=== PATIENT | male | born 2000 | race Caucasian/White ===

== ENCOUNTER 2020-04-03 20:45 | Inpatient (IN) | payer OTHER ==
[2020-04-03 21:15] LABS: Appearance,Urine Clear (Clear); Bilirubin,Urine Negative (Negative); Blood,Urine Negative (Negative); Color,Urine Yellow; Glucose,Urine (UA) Negative (Negative); Ketones,Urine Negative (Negative); Leukocyte Esterase,Urine Negative (Negative); Nitrite,Urine Negative (Negative); PH, Urine 6.5 (5.0-8.0); Protein,Urine Negative (Negative); Specific Gravity,Urine 1.027 (1.001-1.035); Urobilinogen,Urine <2.0 mg/dL (<2.0)
[2020-04-03 21:28] LABS: Amphetamine Screen,Urine Not Detected (NotDetected); Barbiturate Screen,Urine Not Detected (NotDetected); Benzodiazepines Screen,Urine Not Detected (NotDetected); Cocaine Screen,Urine Not Detected (NotDetected); Methadone Screen, Urine Not Detected (NotDetected); Opiate Screen,Urine Not Detected (NotDetected); Oxycodone Screen, Urine Not Detected (NotDetected); Phencyclidine Screen,Urine Not Detected (NotDetected); Tricyclic Antidepressant,Urine Not Detected (NotDetected); Urn Cannabinoid Scrn Not Detected (NotDetected)
--- NOTE | 2020-04-03 22:38 | ED ---
Psych HPI <LyndonHarpal ballesteros - Last Filed: 04/04/20 02:28> - General Source: patient Mode of arrival: ambulatory <Michelle Sanabria - Last Filed: 04/08/20 02:58> - General Chief Complaint: Psychiatric Symptoms Stated Complaint: Mental health Time Seen by Provider: 04/03/20 20:56 - History of Present Illness Initial Comments: 19-year-old male patient passed medical history significant for bipolar disorder presents to the emergency department today for evaluation of suicidal ideation. Patient states he was recently in trouble with the law and has been very stressed out regarding this. States he was recently incarcerated and started on Prozac, he does not feel it is helping. States he is currently staying at the [facility]. States he has a plan to hang himself because he is overwhelmed and sad from dealing with all of the legal proceedings. He denies any current physical symptoms or concerns. Denies any alcohol or drug use. Patient denies any recent rash, fever, chills, cough, shortness of breath, chest pain, ab dominal pain, nausea, vomiting, diarrhea, constipation, back pain, numbness, tingling, dizziness, weakness, hematuria, dysuria, urinary urgency, urinary frequency, headache, visual changes, or any other complaints. (Michelle Sanabria) - Related Data Home Medications Medication Instructions Recorded Confirmed No Known Home Medications 04/04/20 04/04/20 Allergies Allergy/AdvReac Type Severity Reaction Status Date / Time No Known Allergies Allergy Verified 04/04/20 08:07 Review of Systems ROS Other: All systems not noted in ROS Statement are negative. <Harpal Infante - Last Filed: 04/04/20 02:28> ROS Other: All systems not noted in ROS Statement are negative. <Michelle Sanabria - Last Filed: 04/08/20 02:58> ROS Statement: Those systems with pertinent positive or pertinent negative responses have been documented in the HPI. Past Medical History Past Medical History: No Reported History Additional Past Medical History / Comment(s): ODD, OCD History of Any Multi-Drug Resistant Organisms: None Reported Past Surgical History: No Surgical Hx Reported Past Psychological History: ADD/ADHD, Bipolar Smoking Status: Current every day smoker Past Alcohol Use History: None Reported Past Drug Use History: None Reported - Past Family History Mother History Unknown: Yes <Michelle Sanabria M - Last Filed: 04/08/20 02:58> General Exam Limitations: no limitations General appearance: alert, in no apparent distress, other (Physical well- developed, well-nourished adult male patient in no acute distress. Vital signs upon presentation are temperature 98.8F, pulse 92, respirations 18, blood pressure 138/89, pulse ox 99% on room air.) Eye exam: Present: normal appearance, PERRL, EOMI. Absent: scleral icterus, conjunctival injection, periorbital swelling ENT exam: Present: normal exam, normal oropharynx, mucous membranes moist Respiratory exam: Present: normal lung sounds bilaterally. Absent: respiratory distress, wheezes, rales, rhonchi, stridor Cardiovascular Exam: Present: regular rate, normal rhythm, normal heart sounds. Absent: systolic murmur, diastolic murmur, rubs, gallop, clicks GI/Abdominal exam: Present: soft, normal bowel sounds. Absent: distended, tenderness, guarding, rebound, rigid Back exam: Present: normal inspection Neurological exam: Present: alert, oriented X3, CN II-XII intact Psychiatric exam: Present: depressed, suicidal ideation. Absent: normal affect, normal mood, homicidal ideation Skin exam: Present: warm, dry, intact, normal color. Absent: rash <Michelle Sanabria M - Last Filed: 04/08/20 02:58> Course Vital Signs 04/03/20 04/04/20 04/04/20 20:49 07:20 19:13 Temperature 98.8 F 98.5 F 98.2 F Pulse Rate 92 66 86 Respiratory 18 16 16 Rate Blood Pressure 138/89 115/59 118/78 O2 Sat by Pulse 99 98 97 Oximetry 04/05/20 04/05/20 04/05/20 06:17 08:00 08:32 Temperature Pulse Rate 70 73 Respiratory 17 18 18 Rate Blood Pressure 89/53 116/58 O2 Sat by Pulse 97 98 Oximetry 04/05/20 04/05/20 04/05/20 09:00 10:00 11:00 Temperature Pulse Rate Respiratory 18 18 18 Rate Blood Pressure O2 Sat by Pulse 98 Oximetry 04/05/20 04/05/20 04/05/20 12:00 13:00 14:00 Temperature 98.4 F Pulse Rate 80 Respiratory 18 18 18 Rate Blood Pressure 128/72 O2 Sat by Pulse 99 Oximetry 04/05/20 04/05/20 04/05/20 15:00 16:00 17:00 Temperature Pulse Rate Respiratory 18 18 18 Rate Blood Pressure O2 Sat by Pulse Oximetry 04/05/20 04/05/20 04/06/20 18:00 23:00 06:21 Temperature 98.1 F 97.5 F L Pulse Rate 72 70 Respiratory 18 16 16 Rate Blood Pressure 132/75 140/70 O2 Sat by Pulse 97 97 Oximetry 04/06/20 04/07/20 11:23 10:04 Temperature 97.9 F Pulse Rate 65 81 Respiratory 18 18 Rate Blood Pressure 130/66 136/76 O2 Sat by Pulse 97 99 Oximetry Medical Decision Making <Harpal Infante - Last Filed: 04/04/20 02:28> - Lab Data Result diagrams: 04/04/20 08:23 04/04/20 08:23 <Michelle Sanabria - Last Filed: 04/08/20 02:58> - Medical Decision Making I saw this patient for the purpose of following the clinical certification. I saw this patient in conjunction with the nurse practitioner. I performed independent history and physical exam. Agree with case management. (Harpal Infante) - Lab Data Lab Results 04/03/20 04/04/20 04/04/20 Range/Units 21:00 00:34 08:23 WBC 6.2 (4.0-11.0) k/uL RBC 4.98 (4.30-5.90) m/uL Hgb 15.9 (13.0-17.5) gm/dL Hct 45.6 (39.0-53.0) % MCV 91.7 (80.0-100.0) fL MCH 32.0 (25.0-35.0) pg MCHC 34.8 (31.0-37.0) g/dL RDW 12.4 (11.5-15.5) % Plt Count 221 (150-450) k/uL MPV 6.7 Neutrophils % 63 % Lymphocytes % 27 % Monocytes % 4 % Eosinophils % 2 % Basophils % 3 % Neutrophils # 3.9 (1.3-7.7) k/uL Lymphocytes # 1.7 (1.0-4.8) k/uL Monocytes # 0.3 (0-1.0) k/uL Eosinophils # 0.1 (0-0.7) k/uL Basophils # 0.2 (0-0.2) k/uL Sodium (137-145) mmol/L Potassium (3.5-5.1) mmol/L Chloride (98-107) mmol/L Carbon Dioxide (22-30) mmol/L Anion Gap mmol/L BUN (9-20) mg/dL Creatinine (0.66-1.25) mg/dL Est GFR (CKD-EPI)AfAm (>60 ml/min/1.73 sqM) Est GFR (CKD-EPI)NonAf (>60 ml/min/1.73 sqM) Glucose (74-99) mg/dL Calcium (8.4-10.2) mg/dL Total Bilirubin (0.2-1.3) mg/dL AST (17-59) U/L ALT (4-49) U/L Alkaline Phosphatase (38-126) U/L Total Protein (6.3-8.2) g/dL Albumin (3.5-5.0) g/dL Urine Color Yellow Urine Appearance Clear (Clear) Urine pH 6.5 (5.0-8.0) Ur Specific [place] 1.027 (1.001-1.035) Urine Protein Negative (Negative) Urine Glucose (UA) Negative (Negative) Urine Ketones Negative (Negative) Urine Blood Negative (Negative) Urine Nitrite Negative (Negative) Urine Bilirubin Negative (Negative) Urine Urobilinogen <2.0 (<2.0) mg/dL Ur Leukocyte Esterase Negative (Negative) Urine Opiates Screen Not Detected (NotDetected) Ur Oxycodone Screen Not Detected (NotDetected) Urine Methadone Screen Not Detected (NotDetected) Ur Propoxyphene Screen Not Detected (NotDetected) Ur Barbiturates Screen Not Detected (NotDetected) U Tricyclic Antidepress Not Detected (NotDetected) Ur Phencyclidine Scrn Not Detected (NotDetected) Ur Amphetamines Screen Not Detected (NotDetected) U Methamphetamines Scrn Not Detected (NotDetected) U Benzodiazepines Scrn Not Detected (NotDetected) Urine Cocaine Screen Not Detected (NotDetected) U Marijuana (THC) Screen Not Detected (NotDetected) Coronavirus (PCR) Detected A (Not Detectd) 04/04/20 Range/Units 08:23 WBC (4.0-11.0) k/uL RBC (4.30-5.90) m/uL Hgb (13.0-17.5) gm/dL Hct (39.0-53.0) % MCV (80.0-100.0) fL MCH (25.0-35.0) pg MCHC (31.0-37.0) g/dL RDW (11.5-15.5) % Plt Count (150-450) k/uL MPV Neutrophils % % Lymphocytes % % Monocytes % % Eosinophils % % Basophils % % Neutrophils # (1.3-7.7) k/uL Lymphocytes # (1.0-4.8) k/uL Monocytes # (0-1.0) k/uL Eosinophils # (0-0.7) k/uL Basophils # (0-0.2) k/uL Sodium 140 (137-145) mmol/L Potassium 3.6 (3.5-5.1) mmol/L Chloride 108 H (98-107) mmol/L Carbon Dioxide 25 (22-30) mmol/L Anion Gap 7 mmol/L BUN 18 (9-20) mg/dL Creatinine 0.80 (0.66-1.25) mg/dL Est GFR (CKD-EPI)AfAm >90 (>60 ml/min/1.73 sqM) Est GFR (CKD-EPI)NonAf >90 (>60 ml/min/1.73 sqM) Glucose 138 H (74-99) mg/dL Calcium 9.0 (8.4-10.2) mg/dL Total Bilirubin 0.2 (0.2-1.3) mg/dL AST 31 (17-59) U/L ALT 24 (4-49) U/L Alkaline Phosphatase 79 (38-126) U/L Total Protein 6.8 (6.3-8.2) g/dL Albumin 4.2 (3.5-5.0) g/dL Urine Color Urine Appearance (Clear) Urine pH (5.0-8.0) Ur Specific [place] (1.001-1.035) Urine Protein (Negative) Urine Glucose (UA) (Negative) Urine Ketones (Negative) Urine Blood (Negative) Urine Nitrite (Negative) Urine Bilirubin (Negative) Urine Urobilinogen (<2.0) mg/dL Ur Leukocyte Esterase (Negative) Urine Opiates Screen (NotDetected) Ur Oxycodone Screen (NotDetected) Urine Methadone Screen (NotDetected) Ur Propoxyphene Screen (NotDetected) Ur Barbiturates Screen (NotDetected) U Tricyclic Antidepress (NotDetected) Ur Phencyclidine Scrn (NotDetected) Ur Amphetamines Screen (NotDetected) U Methamphetamines Scrn (NotDetected) U Benzodiazepines Scrn (NotDetected) Urine Cocaine Screen (NotDetected) U Marijuana (THC) Screen (NotDetected) Coronavirus (PCR) (Not Detectd) Disposition <Harpal Infante - Last Filed: 04/04/20 02:28> Is patient prescribed a controlled substance at d/c from ED?: No - Out of Hospital Transfer - Req. Specs Out of Hospital Transfer - Requested Specifics: Psychiatric Non-ICU <Michelle Sanabria - Last Filed: 04/08/20 02:58> Clinical Impression: Suicidal ideation, COVID-19 Disposition: OTHER INSTITUTION NOT DEFINED Condition: Serious
[2020-04-04 08:38] LABS: Basophils # (A) 0.2 k/uL (0-0.2); Basophils % (A) 3 %; Eosinophils # (A) 0.1 k/uL (0-0.7); Eosinophils % (A) 2 %; HCT 45.6 % (39.0-53.0); HGB 15.9 gm/dL (13.0-17.5); Lymphocytes # (A) 1.7 k/uL (1.0-4.8); Lymphocytes % (A) 27 %; MCHC 34.8 g/dL (31.0-37.0); MCV 91.7 fL (80.0-100.0); Mean Platelet Volume 6.7; Monocytes # (A) 0.3 k/uL (0-1.0); Monocytes % (A) 4 %; Neutrophils # (A) 3.9 k/uL (1.3-7.7); Neutrophils % (A) 63 %; Platelet Count 221 k/uL (150-450); RBC 4.98 m/uL (4.30-5.90); RDW 12.4 % (11.5-15.5); WBC 6.2 k/uL (4.0-11.0)
[2020-04-04 08:50] LABS: ALT 24 U/L (4-49); AST 31 U/L (17-59); African American GFR (CKD) >90 (>60 ml/min/1.73 sqM); Albumin 4.2 g/dL (3.5-5.0); Alkaline Phosphatase 79 U/L (38-126); Anion Gap 7 mmol/L; Blood Urea Nitrogen 18 mg/dL (9-20); Carbon Dioxide 25 mmol/L (22-30); Chloride 108 mmol/L (98-107); Glucose 138 mg/dL (74-99); Non-African American GFR(CKD) >90 (>60 ml/min/1.73 sqM); Potassium 3.6 mmol/L (3.5-5.1); Sodium 140 mmol/L (137-145); Total Bilirubin 0.2 mg/dL (0.2-1.3); Total Protein 6.8 g/dL (6.3-8.2)
[2020-04-04] MEDS ORDERED: FLUoxetine HCL 20 MG CAP PO STA (21:28)
[2020-04-04] MEDS ORDERED: ALBUTEROL HFA INHALER INHALATION STA (21:28)
[2020-04-06] MEDS ORDERED: HALOPERIDOL LACTATE 5 MG/ML 1 ML VIAL IM PRN (16:17)
--- NOTE | 2020-04-07 03:21 | P.CONS ---
History of Present Illness - Reason for Consult Consult date: 04/07/20 - History of Present Illness Patient is a 89-year-old male with a PMH of tobacco abuse who presented to the emergency room with complaints of depression and suicidal ideation. The patient had reported that he had gotten in trouble with the law and it was bringing him down quite a bit. The patient was seen in the emergency room. He denied active complaints at the time of the interview. He reported feeling well. Denied chest pain, shortness of breath, fever, chills, nausea, vomiting, abdominal pain, headaches, weakness, numbness, tingling. Laboratory evaluation in the emergency room was reviewed and was remarkable for coronavirus PCR positive. Review of Systems Pertinent positives and negatives as discussed in HPI, a complete review of systems was performed and all other systems are negative. Past Medical History Past Medical History: No Reported History Additional Past Medical History / Comment(s): ODD, OCD History of Any Multi-Drug Resistant Organisms: None Reported Past Surgical History: No Surgical Hx Reported Past Psychological History: ADD/ADHD, Bipolar Smoking Status: Current every day smoker Past Alcohol Use History: None Reported Past Drug Use History: None Reported Medications and Allergies Home Medications Medication Instructions Recorded Confirmed Type No Known Home Medications 04/04/20 04/04/20 History Allergies Allergy/AdvReac Type Severity Reaction Status Date / Time No Known Allergies Allergy Verified 04/04/20 08:07 Physical Exam Vitals: Vital Signs Temp Pulse Resp BP Pulse Ox 04/06/20 11:23 97.9 F 65 18 130/66 97 04/06/20 06:21 97.5 F L 70 16 140/70 97 General: non toxic, no distress, appears at stated age, normal weight Derm: no unusual rashes/lesions no unusual ecchymoses, warm, dry Head: atraumatic, normocephalic, symmetric Eyes: EOMI, no lid lag, anicteric sclera, pupils equal round reactive to light ENT: Nose and ears atraumatic, no thrush, no pharyngeal erythema Neck: No thyromegaly, no cervical lymphadenopathy, trachea midline, supple Mouth: no lip lesion, mucus membranes moist Cardiovascular: S1S2 reg, no murmur, positive posterior tibial pulse bilateral, no edema, capillary refill less than 2 seconds Lungs: CTA bilateral, no rhonchi, no rales , no accessory muscle use Abdominal: soft, nontender to palpation, no guarding, no appreciable organomegaly, normal bowel sounds Ext: no gross muscle atrophy, muscle strength 5 out of 5 in all 4 extremities grossly, no contractures, Neuro: CN II-XI grossly intact, light touch intact all 4 extremities, finger to nose within normal limits, Psych: Alert, oriented, appropriate affect Results CBC & Chem 7: 04/04/20 08:23 04/04/20 08:23 Assessment and Plan Plan: Covid 19, without pneumonitis -Zinc, vitamin C, vitamin D -Oxygen if needed Tobacco abuse -Advised on importance of cessation Depression and suicidal ideation -As per psychiatry Thank you for allowing us to participate in the care of this patient. We will follow peripherally. Do not hesitate to contact us with questions. Someone can be reached from the [facility] hospitalist group at all hours of the day at [phone].
--- NOTE | 2020-04-07 04:04 | P.HPIM ---
History of Present Illness H&P Date: 04/07/20 Patient is a 89-year-old male with a PMH of tobacco abuse who presented to the emergency room with complaints of depression and suicidal ideation. The patient had reported that he had gotten in trouble with the law and it was bringing him down quite a bit. The patient was seen in the emergency room. He denied active complaints at the time of the interview. He reported feeling well. Denied [address] pain, shortness of breath, fever, chills, nausea, vomiting, abdominal pain, headaches, weakness, numbness, tingling. Laboratory evaluation in the emergency room was reviewed and was remarkable for coronavirus PCR positive. Review of Systems Pertinent positives and negatives as discussed in HPI, a complete review of systems was performed and all other systems are negative. Past Medical History Past Medical History: No Reported History Additional Past Medical History / Comment(s): ODD, OCD History of Any Multi-Drug Resistant Organisms: None Reported Past Surgical History: No Surgical Hx Reported Past Psychological History: ADD/ADHD, Bipolar Smoking Status: Current every day smoker Past Alcohol Use History: None Reported Past Drug Use History: None Reported Medications and Allergies Home Medications Medication Instructions Recorded Confirmed Type No Known Home Medications 04/04/20 04/04/20 History Allergies Allergy/AdvReac Type Severity Reaction Status Date / Time No Known Allergies Allergy Verified 04/04/20 08:07 Physical Exam Vitals: Vital Signs Temp Pulse Resp BP Pulse Ox 04/06/20 11:23 97.9 F 65 18 130/66 97 04/06/20 06:21 97.5 F L 70 16 140/70 97 General: non toxic, no distress, appears at stated age, overweight Derm: no unusual rashes/lesions no unusual ecchymoses, warm, dry Head: atraumatic, normocephalic, symmetric Eyes: EOMI, no lid lag, anicteric sclera, pupils equal round reactive to light ENT: Nose and ears atraumatic, no thrush, no pharyngeal erythema Neck: No thyromegaly, no cervical lymphadenopathy, trachea midline, supple Mouth: no lip lesion, mucus membranes moist Cardiovascular: S1S2 reg, no murmur, positive posterior tibial pulse bilateral, no edema, capillary refill less than 2 seconds Lungs: CTA bilateral, no rhonchi, no rales , no accessory muscle use Abdominal: soft, nontender to palpation, no guarding, no appreciable organomegaly, normal bowel sounds Ext: no gross muscle atrophy, muscle strength 5 out of 5 in all 4 extremities grossly, no contractures, Neuro: CN II-XI grossly intact, light touch intact all 4 extremities, finger to nose within normal limits, Psych: Alert, oriented, appropriate affect Results CBC & Chem 7: 04/04/20 08:23 04/04/20 08:23 Assessment and Plan Plan: Covid 19, without pneumonitis -Zinc, vitamin C, vitamin D -Oxygen if needed Tobacco abuse -Advised on importance of cessation Depression and suicidal ideation -As per psychiatry DVT prophylaxis -Heparin subq The patient is admitted with an anticipated less than 2 midnight stay for evaluation of depression w/ SI CODE STATUS: Full Cde Discussed with: Patient Anticipated discharge date: 1-[address]: Home A total of 30 minutes was spent on the care of this complex patient more than 50% of the time was spent in counseling and care coordination.
[2020-04-07] MEDS ORDERED: FLUoxetine HCL 20 MG CAP PO SCH (09:00)
[2020-04-07] MEDS: ZINC SULFATE 220 MG CAP PO SCH (10:01)
[2020-04-07] MEDS: ASCORBIC ACID 500 MG TAB PO SCH (10:01)
[2020-04-07] MEDS ORDERED: HALOPERIDOL LACTATE 5 MG/ML 1 ML VIAL IM PRN (12:43)
[2020-04-07] MEDS ORDERED: hydrOXYzine pamoate 25 MG CAP PO PRN (12:58)
[2020-04-07] MEDS ORDERED: FLUoxetine HCL 10 MG CAP PO STA (12:58)
--- NOTE | 2020-04-07 12:58 | P.HP ---
Psychiatric H&P - . H&P Date: 04/07/20 History & Physical: Allergies Allergy/AdvReac Type Severity Reaction Status Date / Time No Known Allergies Allergy Verified 04/04/20 08:07 Vital Signs Temp 97.9 F 04/06/20 11:23 Pulse 81 04/07/20 10:04 Resp 18 04/07/20 10:04 BP 136/76 04/07/20 10:04 Pulse Ox 99 04/07/20 10:04 Laboratory Last Values WBC 6.2 k/uL (4.0-11.0) 04/04/20 08:23 RBC 4.98 m/uL (4.30-5.90) 04/04/20 08:23 Hgb 15.9 gm/dL (13.0-17.5) 04/04/20 08:23 Hct 45.6 % (39.0-53.0) 04/04/20 08:23 MCV 91.7 fL (80.0-100.0) 04/04/20 08:23 MCH 32.0 pg (25.0-35.0) 04/04/20 08:23 MCHC 34.8 g/dL (31.0-37.0) 04/04/20 08:23 RDW 12.4 % (11.5-15.5) 04/04/20 08:23 Plt Count 221 k/uL (150-450) 04/04/20 08:23 MPV 6.7 04/04/20 08:23 Neutrophils % 63 % 04/04/20 08:23 Lymphocytes % 27 % 04/04/20 08:23 Monocytes % 4 % 04/04/20 08:23 Eosinophils % 2 % 04/04/20 08:23 Basophils % 3 % 04/04/20 08:23 Neutrophils # 3.9 k/uL (1.3-7.7) 04/04/20 08:23 Lymphocytes # 1.7 k/uL (1.0-4.8) 04/04/20 08:23 Monocytes # 0.3 k/uL (0-1.0) 04/04/20 08:23 Eosinophils # 0.1 k/uL (0-0.7) 04/04/20 08:23 Basophils # 0.2 k/uL (0-0.2) 04/04/20 08:23 Sodium 140 mmol/L (137-145) 04/04/20 08:23 Potassium 3.6 mmol/L (3.5-5.1) 04/04/20 08:23 Chloride 108 mmol/L (98-107) H 04/04/20 08:23 Carbon Dioxide 25 mmol/L (22-30) 04/04/20 08:23 Anion Gap 7 mmol/L 04/04/20 08:23 BUN 18 mg/dL (9-20) 04/04/20 08:23 Creatinine 0.80 mg/dL (0.66-1.25) 04/04/20 08:23 Est GFR (CKD-EPI)AfAm >90 (>60 ml/min/1.73 sqM) 04/04/20 08:23 Est GFR (CKD-EPI)NonAf >90 (>60 ml/min/1.73 sqM) 04/04/20 08:23 Glucose 138 mg/dL (74-99) H 04/04/20 08:23 Calcium 9.0 mg/dL (8.4-10.2) 04/04/20 08:23 Total Bilirubin 0.2 mg/dL (0.2-1.3) 04/04/20 08:23 AST 31 U/L (17-59) 04/04/20 08:23 ALT 24 U/L (4-49) 04/04/20 08:23 Alkaline Phosphatase 79 U/L (38-126) 04/04/20 08:23 Total Protein 6.8 g/dL (6.3-8.2) 04/04/20 08:23 Albumin 4.2 g/dL (3.5-5.0) 04/04/20 08:23 Urine Color Yellow 04/03/20 21:00 Urine Appearance Clear (Clear) 04/03/20 21:00 Urine pH 6.5 (5.0-8.0) 04/03/20 21:00 Ur Specific Cobb 1.027 (1.001-1.035) 04/03/20 21:00 Urine Protein Negative (Negative) 04/03/20 21:00 Urine Glucose (UA) Negative (Negative) 04/03/20 21:00 Urine Ketones Negative (Negative) 04/03/20 21:00 Urine Blood Negative (Negative) 04/03/20 21:00 Urine Nitrite Negative (Negative) 04/03/20 21:00 Urine Bilirubin Negative (Negative) 04/03/20 21:00 Urine Urobilinogen <2.0 mg/dL (<2.0) 04/03/20 21:00 Ur Leukocyte Esterase Negative (Negative) 04/03/20 21:00 Urine Opiates Screen Not Detected (NotDetected) 04/03/20 21:00 Ur Oxycodone Screen Not Detected (NotDetected) 04/03/20 21:00 Urine Methadone Screen Not Detected (NotDetected) 04/03/20 21:00 Ur Propoxyphene Screen Not Detected (NotDetected) 04/03/20 21:00 Ur Barbiturates Screen Not Detected (NotDetected) 04/03/20 21:00 U Tricyclic Antidepress Not Detected (NotDetected) 04/03/20 21:00 Ur Phencyclidine Scrn Not Detected (NotDetected) 04/03/20 21:00 Ur Amphetamines Screen Not Detected (NotDetected) 04/03/20 21:00 U Methamphetamines Scrn Not Detected (NotDetected) 04/03/20 21:00 U Benzodiazepines Scrn Not Detected (NotDetected) 04/03/20 21:00 Urine Cocaine Screen Not Detected (NotDetected) 04/03/20 21:00 U Marijuana (THC) Screen Not Detected (NotDetected) 04/03/20 21:00 Coronavirus (PCR) Detected (Not Detectd) A 04/04/20 00:34 04/07/20 12:45 IDENTIFYING DATA: Patient is a 19-year-old male who is currently living at the [facility], currently engaged and has no kids. HPI: Patient presented to the hospital yesterday for suicidal ideations. According to ER report patient was experiencing a lot of stress and having legal difficulties being in trouble with the law. He was claiming that he was recently started on Prozac however felt that it was not helping him significantly. He endorsed a plan of wanting to hang himself due to his legal troubles. Patient's UDS was negative and patient had a positive covid-19 test however still was meeting criteria for mental health admission. Patient was seen in the emergency room today and agreeable history director. He claims that "I said what I had to say to get out of there". He spoke of people at the [place] has been disrespectful towards him and that he was feeling depressed and suicidal. He states that he has been under a lot of stress due to his legal problems and spoke about being on probation currently. He states that he has been [facility] past 2-1/2 weeks. He claims that "I told him I was suicidal to get out of there". Patient appears to have poor insight and judgment and was fairly manipulative. He states that he has been taking Prozac and wants to remain on the Prozac was agreeable to take Zyprexa at nighttime. He states that his sleep has been poor. He described a vague history of possible manic episodes where he would have poor sleep and a lot of energy. He admits to a fair appetite. Patient denies any current suicidal or homicidal ideations intent or plan. At this time patient denies any auditory or visual hallucinations. Patient denies any flight of ideas racing thoughts and increased in goal directed behavior. Patient admits to using cigarettes daily and denies any other recreational drug use. PAST PSYCHIATRIC HISTORY: Patient states that he has a history of bipolar disorder which was diagnosed 2 years ago. Patient claims that he has been on Prozac 20 mg daily which was started by his outpatient psychiatrist that he sees in [facility]. Patient denies any previous psychiatric hospitalizations. He claims that 2 years ago he attempted to overdose on Adderall in a suicide attempt. PMH:denies ALLERGIES: as per EMR CHEMICAL DEPENDENCY HISTORY: as per HPI FAMILY PSYCHIATRIC/SUBSTANCE USE HISTORY: denies SOCIAL HISTORY: Patient was born and raised in [facility]. He claims that he completed high school. He states that currently he is living at the [facility] and is currently on probation. He states that he is charged with domestic and assault with a deadly weapon. He has no kids and is currently engaged. MENTAL STATUS EXAM: General Appearance: Patient appears to be tall and well-built stated age is alert, manipulative at times and guarded/evasive. Patient appears to have fair hygiene and grooming. Behavior: Patient is seated without any agitated behavior. Superficially cooperative at times. Guarded/evasive. Speech: Patient's speech is fluent and nonpressured. Mood/Affect: Patient reports their mood is "better now", affect is congruent and constricted. Suicidality/Homicidality: Patient denies having any homicidal ideation intent or plan. Denies any suicidal ideations intent or plan Perceptions: Patient denies any visual hallucinations and denies any auditory hallucinations Though content/process: Patient is focused on discharge, minimizing his cond ition and need for treatment. no delusions or paranoia. Memory and concentration: AOX3, grossly intact for the purposes of this session. Can spell "WORLD" backwards Judgment and insight: Superficial STRENGTHS/WEAKNESSES: strength is that patient is resilient. Weakness is that patient has poor judgment and is impulsive INTELLECT: average IMPRESSIONS: Bipolar disorder currently depressed Nicotine dependence PLAN: -Patient is admitted under voluntary status to MHU for stabilization of psychiatric symptoms and safety. Patient has signed adult voluntary form and and is placed in patient's chart. -Medications : Will start patient on Prozac 30 mg daily for mood/anxiety. Patient is agreeable to start Zyprexa 5 mg daily at bedtime for mood stabilization/insomnia. -Haldol PRN for agitation/aggression. Vistaril when necessary for anxiety. -Patient was informed of the risks, benefits and side effects of the medication and patient verbally consented to taking the medications. -Internal Medicine consult to perform medical evaluation and physical. -Patient will remain on a one-to-one sitter for safety and also to prevent any self-harm. -NRT - nicotine patch -SW on board for discharge planning. Encourage patient to participate in groups to work on coping skills. If patient does well overnight takes his medications and sleeps well, then consider possible discharge for tomorrow. 04/07/20 12:50
[2020-04-07] MEDS: CHOLECALCIFEROL 400 UNIT TAB PO SCH (13:47)
[2020-04-07] MEDS: NICOTINE 14MG/24HR PATCH TRANSDERM SCH (14:11)
[2020-04-07] MEDS: OLANZapine 5 MG TAB PO SCH (20:23)
[2020-04-07] MEDS: LORazepam 1 MG TAB PO PRN (20:23)
[2020-04-08] MEDS: ZINC SULFATE 220 MG CAP PO SCH (08:30)
[2020-04-08] MEDS: ASCORBIC ACID 500 MG TAB PO SCH (08:30)
[2020-04-08] MEDS: NICOTINE 14MG/24HR PATCH TRANSDERM SCH (08:30)
[2020-04-08] MEDS: CHOLECALCIFEROL 400 UNIT TAB PO SCH (08:31)
[2020-04-08] MEDS: FLUoxetine HCL 10 MG CAP PO SCH (08:31)
--- NOTE | 2020-04-08 10:50 | P.PN ---
Subjective Progress Note Date: 04/08/20 Principal diagnosis: CC: depression Patient denies any cough shortness of breath. He is asking when below the social worker aide talk to him because he has no insurance and he needs help getting Medicaid. 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
[2020-04-08] MEDS: LORazepam 1 MG TAB PO PRN ×2 (13:45→20:36)
[2020-04-08] MEDS: OLANZapine 5 MG TAB PO SCH (20:36)
[2020-04-09 02:58] VITALS: TEMP 97.9
[2020-04-09] MEDS: ZINC SULFATE 220 MG CAP PO SCH (09:24)
[2020-04-09] MEDS: ASCORBIC ACID 500 MG TAB PO SCH (09:24)
[2020-04-09] MEDS: FLUoxetine HCL 10 MG CAP PO SCH (09:24)
[2020-04-09] MEDS: NICOTINE 14MG/24HR PATCH TRANSDERM SCH (09:24)
[2020-04-09] MEDS: CHOLECALCIFEROL 400 UNIT TAB PO SCH (09:25)
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
[2020-04-09 10:20] VITALS: BP 143/79; PULSE 84; RESP 18
--- NOTE | 2020-04-09 10:41 | P.PN ---
Subjective Progress Note Date: 04/09/20 Principal diagnosis: CC: depression Patient states he is doing well. He is ready to go home. He is waiting for psychiatrist to clear him. 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
--- NOTE | 2020-04-09 14:48 | DS ---
DISCHARGE SUMMARY DATE OF SERVICE: 04/09/2020 ADMISSION AND DISCHARGE DIAGNOSIS: 1. Bipolar disorder, currently depressed. 2. Nicotine dependence. HISTORY OF PRESENTING ILLNESS: Is a 19-year-old male, he presented to the ED. He had been living at [facility] and made statements that he was suicidal. As such they referred him to the hospital for further evaluation. On admission the patient said that he stated he was suicidal for only as follows, "I said what I had to say to get out of there." He has had long-term psychiatric issues. He had been on Prozac though apparently was not taking it consistently prior to admission. The patient tested positive for Covid and was managed on the medical floor. MENTAL STATUS EXAM: The patient sat quietly he tended to have a guarded manner. His speech was fluent and non pressured. He had a quiet mood. He voiced no thoughts of harm to self or others at the time of the interview. There was no indication of thought disorder. Cognition was clear. HOSPITAL COURSE: Patient was admitted for comprehensive medical, psychiatric, and psychosocial evaluation. We engaged the patient in individual and group therapeutic activities to the extent we were able based on his limitations of sequestered based on Covid. He was continued on Prozac 30 mg a day. He was started on Zyprexa 5 mg at bedtime. The patient was fairly quiet throughout his hospital stay. He was appropriate. He talked to staff about plans he had for discharge and set up a living situation in the community. At this point Social Work was able to make contact with the person he would be living with and it did sound and it did sound as if the circumstances were adequate for the patient to have a stable living situation upon discharge. The patient was able to cooperate with discharge planning. CONDITION ON DISCHARGE: Patient was stable. He was consistent in stating that he did not have thoughts of suicide during his hospitalization and at the time of discharge, he tolerated psychotropic medications. RECOMMENDATIONS AND FOLLOW UP: Discharge medications include Prozac 30 mg a day and Zyprexa 5 mg at bedtime. He has followup plans being put in place as per Social Work. MMODL / IJN: [id number] /
== END 2020-04-09 13:51 | disposition home or self-care (01) | DRG 885 ==
LOC: EC 20:45 → 4SSUR 04-06 16:16
PROVIDERS: ADMIT Psychiatry & Neurology Psychiatry; ATTEND Psychiatry & Neurology Psychiatry
DX: F31.30 Bipolar disorder, current episode depressed, mild or moderate severity, unspecified (principal); U07.1 COVID-19; R45.851 Suicidal ideations; F42.9 Obsessive-compulsive disorder, unspecified; F90.9 Attention-deficit hyperactivity disorder, unspecified type; F91.3 Oppositional defiant disorder; F17.210 Nicotine dependence, cigarettes, uncomplicated; Z71.6 Tobacco abuse counseling; Z91.5 Personal history of self-harm; Z65.3 Problems related to other legal circumstances
CPT/HCPCS: 36415; 80053; 80306; 81003; 82075; 85025; 87635; 94640; 99285